=== PATIENT | female | born 1970 | race Caucasian/White ===

== ENCOUNTER 2020-02-12 04:46 | Outpatient (CLI) | payer BC, SELFPAY ==
[2020-02-12 08:09] LABS: HCT 38.9 % (36.0-46.0); HGB 13.2 g/dL (11.2-15.7); MCH 32.2 pg (27.0-33.0); MCHC 33.9 % (32.0-36.0); MCV 94.9 fL (80-95); MPV 9.5 fL (8.0-11.0); Platelet Count 256 10^3/uL (130-400); RDW-SD 41.8 fL; WBC 7.42 10^3/uL (4.4-10.8)
[2020-02-12 12:46] LABS: ALT 23 U/L (14-59); AST 12 U/L (15-37); Alkaline Phosphatase 48 U/L (46-116); Anion Gap 3.4 mmol/L (3-11); BUN 14 mg/dL (7-18); Bilirubin, Total 0.5 mg/dL (0.2-1.0); CO2 30.6 mmol/L (21.0-32.0); CREATININE 0.71 mg/dL (0.55-1.02); Calcium 8.8 mg/dL (8.5-10.1); Calculated LDL 90 mg/dL (<100); Chloride 100 mmol/L (98-107); Cholesterol 210 mg/dL (<200); Ferritin 70 ng/mL (8-252); Glucose 85 mg/dL (74-106); HDL Cholesterol 110 mg/dL (40-60); Potassium 4.4 mmol/L (3.5-5.1); Sodium 134 mmol/L (136-145); TSH (W/Ref FT4) 1.57 uIU/mL (0.36-3.74); Total Protein 6.9 g/dL (6.4-8.2); Triglyceride 52 mg/dL (<150); Vitamin B12 556 pg/mL (193-986)
== END 2020-02-12 05:06 ==
PROVIDERS: PCP Nurse Practitioner; Visit Provider Nurse Practitioner Adult Health
DX: R53.83 Other fatigue (principal); G25.81 Restless legs syndrome; R20.2 Paresthesia of skin; Z78.0 Asymptomatic menopausal state
CPT/HCPCS: 36415; 80053; 80061; 85027; 82607; 82728; 84443

== ENCOUNTER 2021-11-12 18:44 | Emergency (ER) | payer BC, SELFPAY ==
[2021-11-12 18:47] VITALS: BP 158/99; PULSE 95; RESP 18; TEMP 36.7; O2SAT 98
[2021-11-12] MEDS: Lidocaine 1% Multi-Dose W/EPI 1/100,000 50 ML VIAL (19:03)
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
== END 2021-11-12 20:08 | disposition home or self-care (01) ==
PROVIDERS: Emergency Provider Student in an Organized Health Care Education/Training Program; PCP Nurse Practitioner
DX: S61.411A Laceration without foreign body of right hand, initial encounter (principal); W26.0XXA Contact with knife, initial encounter
CPT/HCPCS: 12002

== ENCOUNTER 2023-02-13 07:54 | Outpatient (CLI) | payer BC, SELFPAY ==
[2023-02-13 08:21] LABS: Abs Immature Grans 0.01 10^3/uL (0.0-0.06); Absolute Basophil Count 0.04 10^3/uL (0.0-0.2); Absolute Monocyte Count 0.53 10^3/uL (0.1-0.8); Absolute Neutrophil Count 3.41 10^3/uL (1.2-6.7); Basophils % 0.8; Eosinophils % 5.7; HCT 40.7 % (36.0-46.0); HGB 14.4 g/dL (11.2-15.7); Immature Grans % 0.2; Lymphocytes % 18.9; MCHC 35.4 % (32.0-36.0); MCV 96 fL (80-95); MPV 9.2 fL (8.0-11.0); Neutrophils % 64.4; Platelet Count 204 10^3/uL (130-400); RBC 4.24 10^6/uL (3.93-5.22); RDW 11.6 % (11.7-14.6); RDW-SD 40.5 fL; WBC 5.29 10^3/uL (4.4-10.8)
[2023-02-13 08:24] LABS: ESR < 1 mm/hr (0-30)
[2023-02-13 09:03] LABS: ALT 33 U/L (14-59); AST 17 U/L (15-37); Albumin 3.9 g/dL (3.4-5.0); Alkaline Phosphatase 71 U/L (46-116); Anion Gap 6.8 mmol/L (3-11); BUN 10 mg/dL (7-18); Bilirubin, Total 0.6 mg/dL (0.2-1.0); CO2 30.2 mmol/L (21.0-32.0); CREATININE 0.8 mg/dL (0.55-1.02); Calcium 9.6 mg/dL (8.5-10.1); Calculated LDL 101 mg/dL (<100); Chloride 100 mmol/L (98-107); Cholesterol 243 mg/dL (<200); Glucose 108 mg/dL (74-106); HDL Cholesterol 121 mg/dL (40-60); Potassium 3.6 mmol/L (3.5-5.1); Sodium 137 mmol/L (136-145); Total Protein 7.2 g/dL (6.4-8.2); Triglyceride 106 mg/dL (<150)
[2023-02-14 10:23] LABS: Lyme Ab w Rflx to Lyme Confirm Negative (Negative)
[2023-02-14 15:03] LABS: ANA Interpretation Negative (Negative)
[2023-02-16 17:11] LABS: Anaplasma phagocytophilum Negative (Negative); B. miyamotoi PCR Negative (Negative); Babesia divergens/MO-1 Negative (Negative); Babesia duncani Negative (Negative); Babesia microti Negative (Negative); Ehrlichia chaffeensis Negative (Negative); Ehrlichia ewingii/canis Negative (Negative); Ehrlichia muris eauclairensis Negative (Negative)
== END 2023-02-13 07:55 | disposition home or self-care (01) ==
LOC: LBO 07:55
PROVIDERS: PCP Nurse Practitioner; Visit Provider Nurse Practitioner
DX: J45.909 Unspecified asthma, uncomplicated (principal); R21 Rash and other nonspecific skin eruption; Z13.220 Encounter for screening for lipoid disorders
CPT/HCPCS: 36415; 80053; 80061; 85652; 87798; 84443; 85025; 86038; 86618

== ENCOUNTER 2023-06-12 09:38 | Outpatient (REF) | payer BC, SELFPAY ==
--- NOTE | 2023-06-12 08:30 | PAPFT_PTH ---
PATIENT: Elysia Larson LOC: [facility] U#:[id number] AGE/SX: 52/F ROOM: RE06/12/[address]: Quyen Tan APRN : 1970 BED: DIS: 06/12/2023 SPEC #: [id number] RECD: 06/12/23 18:08 STATUS: LYNDA RELawanda #: [id number] PONCHO: 06/12/23 08:[address]: Quyen Tan DEPT: [facility] Cytology RECD BY: Negra Michel Tissues: 1 - CX/ENDOCX FOR PAP SMEARS Procedures: PAP THIN PREP/UVM Screening Comments: [id number] (UNSATISFACTORY FOR EVALUATION)
== END 2023-06-12 09:39 | disposition home or self-care (01) ==
LOC: LBN 09:38
PROVIDERS: PCP Nurse Practitioner; Visit Provider Nurse Practitioner
DX: Z11.3 Encounter for screening for infections with a predominantly sexual mode of transmission (principal)
CPT/HCPCS: 88142; 87480; 87510; 87660

== ENCOUNTER 2023-06-14 04:03 | Outpatient (CLI) | payer BC, SELFPAY ==
[2023-06-15 18:40] LABS: Hepatitis C Ab w Rflx HCV PCR Negative (Negative)
[2023-06-15 19:06] LABS: HIV-1/2 Ag & Ab Screen Negative (Negative)
[2023-06-18 10:33] LABS: HSV Type 1 Ab, IgG Positive (Negative); HSV Type 2 Ab, IgG Negative (Negative)
[2023-06-18 11:11] LABS: Syphilis Serology (RPR) Negative (Negative)
== END 2023-06-14 04:04 | disposition home or self-care (01) ==
LOC: LBO 04:04
PROVIDERS: PCP Nurse Practitioner; Referring Provider Nurse Practitioner; Visit Provider Nurse Practitioner
DX: Z11.59 Encounter for screening for other viral diseases (principal); Z20.2 Contact with and (suspected) exposure to infections with a predominantly sexual mode of transmission
CPT/HCPCS: 36415; 86803; 87389; 86592; 86695; 86696

== ENCOUNTER 2023-09-12 17:49 | Outpatient (REF) | payer BC, SELFPAY ==
--- NOTE | 2023-09-12 17:30 | PAPFT_PTH ---
PATIENT: Elysia Larson LOC: [facility] U#:[id number] AGE/SX: 52/F ROOM: RE09/12/[address]: Quyen Tan APRN : 1970 BED: DIS: 09/12/2023 SPEC #: [id number] RECD: 09/13/23 18:22 STATUS: LYNDA RELawanda #: [id number] PONCHO: 09/12/23 17:[address]: Quyen Tan DEPT: [facility] Cytology RECD BY: Negra Michel Tissues: 1 - CX/ENDOCX FOR PAP SMEARS Procedures: PAP THIN PREP/UVM Screening HPV DNA PROBE Comments: [id number]
== END 2023-09-12 17:50 | disposition home or self-care (01) ==
LOC: LBN 17:49
PROVIDERS: PCP Nurse Practitioner; Visit Provider Nurse Practitioner
DX: Z12.4 Encounter for screening for malignant neoplasm of cervix (principal); D26.0 Other benign neoplasm of cervix uteri
CPT/HCPCS: 88142; 87624

== ENCOUNTER 2024-01-24 10:59 | Outpatient (CLI) | payer BC, SELFPAY ==
[2024-01-24 11:21] LABS: Abs Immature Grans 0.02 10^3/uL (0.0-0.06); Absolute Basophil Count 0.03 10^3/uL (0.0-0.2); Absolute Eosinophil Count 0.21 10^3/uL (0.0-0.7); Absolute Lymphocyte Count 1.38 10^3/uL (1.2-3.4); Absolute Monocyte Count 0.41 10^3/uL (0.1-0.8); Absolute Neutrophil Count 3.12 10^3/uL (1.2-6.7); Basophils % 0.6 %; Eosinophils % 4.1 %; HCT 45.1 % (36.0-46.0); HGB 15.4 g/dL (11.2-15.7); Immature Grans % 0.4 %; Lymphocytes % 26.7 %; MCHC 34.1 % (32.0-36.0); MCV 97 fL (80-95); MPV 9.1 fL (8.0-11.0); Monocytes % 7.9 %; Neutrophils % 60.3 %; Platelet Count 221 10^3/uL (130-400); RBC 4.67 10^6/uL (3.93-5.22); RDW 11.7 % (11.7-14.6); RDW-SD 41.5 fL; WBC 5.17 10^3/uL (4.4-10.8)
[2024-01-24 11:23] LABS: ESR < 1 mm/hr (0-30)
[2024-01-24 11:44] LABS: ALT 32 U/L (14-59); AST 19 U/L (15-37); Albumin 4.3 g/dL (3.4-5.0); Alkaline Phosphatase 75 U/L (46-116); Anion Gap 6.6 mmol/L (3-11); BUN 9 mg/dL (7-18); Bilirubin, Direct 0.2 mg/dL (0.0-0.2); Bilirubin, Total 0.92 mg/dL (0.2-1.0); CO2 29.4 mmol/L (21.0-32.0); CREATININE 0.8 mg/dL (0.55-1.02); Chloride 100 mmol/L (98-107); Estimated GFR 86.96 (mL/min/1.73m2); Glucose 98 mg/dL (74-106); Potassium 4.3 mmol/L (3.5-5.1); Sodium 136 mmol/L (136-145); Total Protein 7.6 g/dL (6.4-8.2)
[2024-01-24 11:47] LABS: C-Reactive Protein < 0.50 mg/dL (<or=0.5)
[2024-01-25 09:09] LABS: C4 Complement 23 mg/dL (13-39)
== END 2024-01-24 11:00 | disposition home or self-care (01) ==
LOC: LBO 11:04
PROVIDERS: PCP Nurse Practitioner; Visit Provider Nurse Practitioner Family
DX: T78.3XXA Angioneurotic edema, initial encounter (principal)
CPT/HCPCS: 36415; 80053; 80076; 85652; 85025; 86140; 86160

== ENCOUNTER 2024-05-08 01:12 | Outpatient (CLI) | payer BC, SELFPAY ==
--- NOTE | 2024-05-08 13:51 | DI.MAMMO_ITS ---
Exam(s) MAMMO DIAGNOSTIC BI EXAM: MAMMO DIAGNOSTIC BI CLINICAL HISTORY: left breast pain,RASH,R21,DIAGNOSTIC,ON ANTIBIOTICS TECHNIQUE: Bilateral full field digital CC and MLO mammographic images were obtained with 3D tomosyn thesis and utilizing computer aided detection (CAD). COMPARISON: Available for comparison. Comparison is made with ultrasound from 04/29/2024. FINDINGS: Masses/Architectural Distortion: None seen. Microcalcifications: No suspicious pleomorphic-type are seen. Skin Thickening/Nipple Retraction: None. IMPRESSION: 1. No significant interval change with no specific features of malignancy noted. 2. Unless there is more urgent need, screening mammography is recommended, as per [employer] [place] guidelines. 3. Findings were discussed with the patient on the date of the examination. BI-RADS Category 1 - Negative Breast Density - Category B - Scattered areas of fibroglandular density Breast density category C or D implies that the patient has dense breast tissue. Dense breast tissue is very common and is not abnormal but dense breast tissue can make it harder to find cancer on a ma mmogram. Also, dense breast tissue may increase their breast cancer risk. This information about the result of the mammogram report was provided to the patient to raise their awareness. Use this report when you speak with the patient about their risks for breast cancer, which includes their family hist ory. At that time, you may recommend for more screening tests (Ultrasound or MRI) as they might be us eful based on their risk. A negative radiographic report should not delay biopsy if a dominant or clinically suspicious mass is present. Up to ten percent of cancers are not identified on mammography. A negative report may reinforce clinical impression. Adenosis and dense breasts may obscure an underlying neoplasm. False positive reports average 6 to 10%. Patient will receive a letter notifying them of these results.
== END 2024-05-08 01:32 ==
LOC: DI 01:12
PROVIDERS: PCP Nurse Practitioner; Visit Provider Nurse Practitioner
DX: N64.4 Mastodynia (principal); R21 Rash and other nonspecific skin eruption; Z12.31 Encounter for screening mammogram for malignant neoplasm of breast
CPT/HCPCS: 77062; 77066; G0279